=== PATIENT | female | born 1955 | race Caucasian/White ===

== ENCOUNTER → 2017-05-01 | Outpatient (CLI) | payer MEDICARE, MEDICAID ==
[~2017-05-01] MED LIST: ATIVAN0.5 MG PER TUBE; CLARITIN10 MG PER TUBE; DUONEB 2.5-0.5 M3 ML INH; DURAGESIC1 EAC2 TRANSDERM; LYRICA 75 MG CA75 MG PER TUBE; OXYCODONE HCL 55 MG PO; Oxycodone PER TUBE; PEPCID20 MG PER TUBE; PULMICORT0.25 MG/3 INH; ROBITUSSIN100 MG/53 PER TUBE; ZANAFLEX4 MG PO; [UNRECOGNIZED DRUG - OTHER] PER TUBE
--- NOTE | 2017-05-10 23:28 | ONC ---
[address] [address] RADIATION ONCOLOGY NOTE Name: MARIELENA MURILLO Room: [facility]#: [id number] Admission: 05/01/17 Attend Phys: Rosas Pastor MD Discharge: Date of : 55 Report #: [id number] THIS REPORT FOR: //name// CC: Azra Navarrete NO PCP DATE OF PROCEDURE: 05/01/2017 REFERRING PHYSICIANS: 1. Helen Concepcion MD 2. Noa Ritter MD 3. Dr. Rendon. 4. Dr. Navarrete. [facility] phone is [phone]. 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 She completed radiation therapy on 04/12/2015. PROCEDURE: Nasopharyngolaryngoscopy. FINDINGS: On nasopharyngolaryngoscopy, after administration of a small amount of 2% viscous lidocaine orally and 2% viscous lidocaine to the left nostril, using a cotton swab, there were no visible lesions in the nasopharynx or posterior oropharynx. The true vocal cords were normally mobile bilaterally. The patient has a stable area of fibrosis involving the left side of the supraglottic area that was biopsied on 08/30/2015 and had benign findings. There is no evidence of head and neck cancer. Thank you for allowing me to participate in the care of this patient. <ELECTRONICALLY SIGNED> By: Rosas Pastor MD 05/10/17 2328 1149 1214Djuan antonio Pastor MD /nt
--- NOTE | 2017-05-10 23:32 | ONC ---
[place] [address] RADIATION ONCOLOGY NOTE Name: MARIELENA MURILLO Room: [facility]#: [id number] Admission: 05/01/17 Attend Phys: Rosas Pastor MD Discharge: Date of : 55 Report #: [id number] THIS REPORT FOR: //name// CC: Rosas Rendon DATE OF SERVICE: 05/01/2017 REFERRING PHYSICIAN: Azra Ritter MD; Helen Concepcion MD; Dr. Navarrete and Dr. Rendon. [facility] phone is [phone]. 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 She completed radiation treatments on 04/12/2015. INTERVAL NOTE: The patient was seen by speech pathology on 02/25/2017 where she had a swallow study and they recommended she just does pleasure feedings by mouth; otherwise, she takes most of her nutrition through the gastric tube and they indicated, due to the severity of her dysphagia, she cannot sustain nutrition and hydration by mouth and requires life long supplemental nutrition through her gastric tube to maintain adequate hydration and nutrition. She will eat food such as a baked potato by mouth, but otherwise takes about 4 supplements through her gastric tube per day. MEDICATIONS: Loratadine, DuoNeb, famotidine, she takes oxycodone as needed for arthritis, lorazepam and 25 mcg of levothyroxine per day. SOCIAL HISTORY: The patient continues to smoke cigarettes: The patient continues to smoke about a pack of cigarettes per week. REVIEW OF SYSTEMS: RESPIRATORY: Breathing was stable. She was not short of breath. GASTROINTESTINAL: She takes pleasure feedings by mouth such as the baked potato, otherwise she takes about 4 supplements through her gastric tube per day. PHYSICAL EXAMINATION: VITAL SIGNS: The patient weighed 158.8 pounds on 05/01/2017 and 147 pounds on 12/22/2016. On 05/01/2017, her blood pressure was 150/78, pulse 73, respirations 18 and oxygen saturation is 97%. LYMPH NODES: She had no palpable cervical [place] [address] RADIATION ONCOLOGY NOTE Name: MARIELENA MURILLO Room: [facility]#: [id number] Admission: 05/01/17 Attend Phys: Rosas Pastor MD Discharge: Date of : 55 Report #: [id number] HEAD, EYES, EARS, NOSE AND THROAT EXAM: Mouth had no suspicious visible lesions or suspicious palpable lesions. Nasopharyngolaryngoscopy after administration of a small amount of 2% viscous lidocaine orally and 2% viscous lidocaine to the left nostril, there were no visible lesions in the nasopharynx. There were no visible lesions in the posterior pharynx. Epiglottis had a small area of fibrosis that was biopsied on 08/30/2015 which revealed benign findings and appeared stable. Vocal cords were normally mobile bilaterally. The patient was edentulous. HEART: Had a regular rate and rhythm without murmur. LUNGS: were clear to auscultation. ABDOMEN: Soft. Gastric tube was in place. LABORATORY DATA: From 04/22/2017, TSH was 1.78 on her present dose of 25 mcg of levothyroxine per day and her white blood count was 2.4, hemoglobin 13.0 and platelets 61,000. Sodium 138, potassium 4.1, BUN 13 and creatinine 1.0. RADIOLOGIC DATA: The patient had a neck and chest CT on 04/22/2017 which revealed that the findings were overall improved compared to her prior examination and suggested post-treatment related changes which include some prominence of the mucosa in the supraglottis area, but there was no osseous erosion seen. There were no pathologically enlarged cervical lymph nodes. She had stable noncalcified pulmonary nodules in her lungs. ASSESSMENT AND PLAN: 1. History of head and neck cancer- There is no evidence of head and neck cancer at this time. The patient indicates she is seeing her medical oncologist, Dr. Concepcion in 07/2017. She was given a requisition for a TSH, complete blood count and basic metabolic panel in 10/2017. She was asked to schedule a followup appointment to see me afterwards. 2. Hypothyroidism- The patient's TSH was within normal limits on her present dose of 25 mcg of levothyroxine. She was given a refill for 25 mcg of levothyroxine and a requisition for TSH in 10/2017. She was asked to schedule a followup appointment to see me afterwards. 3. Cigarette smoking- The patient was encouraged to quit smoking. 4. Hepatitis C- The patient finished treatment of hepatitis C and sees Dr. Rendon concerning that issue. Thank you for allowing me to participate in the care of this patient. <ELECTRONICALLY SIGNED> By: Rosas Pastor MD 05/10/17 2332 1158 1237Rosas Pastor MD /nt
== END ==
LOC: M.RTH 01:38
DX: E03.9 Hypothyroidism, unspecified (principal); B19.20 Unspecified viral hepatitis C without hepatic coma; Z87.891 Personal history of nicotine dependence

== ENCOUNTER → 2017-10-23 | Outpatient (CLI) | payer OTHER, MEDICAID ==
--- NOTE | 2017-10-31 16:27 | ONC ---
[address] [address] RADIATION ONCOLOGY NOTE Name: MARIELENA MURILLO Room: [facility]#: [id number] Admission: 10/23/17 Attend Phys: Rosas Pastor MD Discharge: Date of : 55 Report #: [id number] THIS REPORT FOR: //name// CC: Rosas Brown DATE OF PROCEDURE: 10/23/2017 REFERRING PHYSICIANS: Include Dr. Concepcion, Dr. Azra Ritter, Dr. Lopes, and Dr. Frank. [facility] phone is [phone]. PRIMARY SITE AND HISTOPATHOLOGY: The patient underwent chemotherapy and radiation therapy for a stage YA supraglottic cancer. She completed radiation therapy on 04/12/2015. PROCEDURE: Nasopharyngolaryngoscopy. FINDINGS: On nasopharyngolaryngoscopy, after administration of a small amount of 2% viscous lidocaine orally and 2% viscous lidocaine to the left nostril using a cotton swab; there were no visible lesions in the nasopharynx or posterior oropharynx. The true vocal cords were normally mobile bilaterally. The patient has a small area of fibrosis on the left side of the supraglottic area that decreased in size, that was biopsied on 10/31/2015, and the pathology was consistent with benign findings. There is no evidence of head and neck cancer. Thank you for allowing me to participate in the care of this patient. <ELECTRONICALLY SIGNED> By: Rosas Pastor MD 10/31/17 1627 1049 1341Djuan antonio Pastor MD /nt
--- NOTE | 2017-10-31 16:41 | ONC ---
[place] [address] RADIATION ONCOLOGY NOTE Name: MARIELENA MURILLO Room: [facility]#: [id number] Admission: 10/23/17 Attend Phys: Rosas Pastor MD Discharge: Date of : 55 Report #: [id number] THIS REPORT FOR: //name// CC: Rosas Brown DATE OF SERVICE: 10/23/2017 REFERRING PHYSICIANS: Helen Concepcion MD; Dr. Lopes; Azra Ritter MD; Dr. Frank; also Dr. Brown. [facility] phone is [phone]. 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 She completed radiation treatments on 04/12/2015. INTERVAL NOTE: The patient is able to eat more foods by mouth. She is eating foods such as a baked potato and cottage cheese and she can tolerate those type of soft, moist foods. She still relies on about taking 3 enteral supplements per day given by the gastric tube to help maintain her weight, so she has been gaining weight. She said she received a 3-months' course of treatment for hepatitis C and that treatment was by Dr. Brown. Overall she feels like she is doing well. She is edentulous. She wears dentures. MEDICATIONS: Loratadine, DuoNeb, famotidine, oxycodone as needed for arthritis, lorazepam as needed, and 25 mcg of levothyroxine per day. SOCIAL HISTORY: The patient continues to smoke cigarettes. She has decreased how much she smokes. She used to smoke a pack of cigarettes a day. She is now down to half a pack of cigarettes per day. REVIEW OF SYSTEMS: RESPIRATORY: Breathing was stable. She was not short of breath. GASTROINTESTINAL: She is able to eat more foods by mouth, and she is taking about 3 cans of supplements per day through her gastric tube. PHYSICAL EXAMINATION: VITAL SIGNS: The patient weighed 169.4 pounds on 10/23/2017. She was 158.8 pounds on 05/01/2017. On 10/23/2017, blood pressure was 156/68, pulse 71, respirations 16, oxygen saturation was 95%. LYMPH NODES: She had no palpable cervical or supraclavicular lymphadenopathy. HEAD, EYES, EARS, NOSE AND THROAT: Mouth [place] [address] RADIATION ONCOLOGY NOTE Name: MARIELENA MURILLO Room: [facility]#: [id number] Admission: 10/23/17 Attend Phys: Rosas Pastor MD Discharge: Date of : 55 Report #: [id number] suspicious palpable lesions. On nasopharyngolaryngoscopy, after administration of a small amount of 2% viscous lidocaine orally and 2% viscous lidocaine to the left nostril, there were no visible lesions in the nasopharynx. There were no visible lesions in the posterior pharynx. The epiglottis had a small area of fibrosis that was smaller than the previous exam, which was biopsied on 08/30/2015, which revealed benign findings. The true vocal cords were normally mobile bilaterally. There were no visible lesions involving he vocal cords. HEART: Had a regular rate and rhythm without murmur. LUNGS: were clear to auscultation. ABDOMEN: Soft with positive bowel sounds. Gastric tube was in place. LABORATORY DATA: The patient's TSH was 3.21, which was within normal limits on 10/13/2017 on her present dose of levothyroxine at 25 mcg per day. Other labs from 10/13/2017 from [facility] had a white blood count of 3.9, hemoglobin 14.4, platelets were 99,000. Sodium 142, potassium 3.8, BUN 9, creatinine 0.8. RADIOLOGIC DATA: The patient had a neck and chest CT on 04/22/2017 and that revealed post-treatment findings that were overall improved compared to her prior examination suggestive of post-treatment related changes. There were no enlarged cervical lymph nodes. There were stable solid noncalcified pulmonary nodules in the lungs. ASSESSMENT AND PLAN: 1. History of head and neck cancer- There is no evidence of head and neck cancer at this time. The patient said that she is scheduled to see her medical oncologist, Dr. Concepcion, in 01/2018. The patient was given a requisition for a complete blood count and basic metabolic panel as well as a neck and chest CT in 04/2018. She was asked to schedule a followup appointment to see me after that lab work is completed. 2. Hypothyroidism - The patient's TSH was within normal limits on her present dose of 25 mcg of levothyroxine. She was given a refill for 25 mcg of levothyroxine. A requisition was written for a TSH in 04/2018. She was asked to schedule a follow up appointment to see me afterwards. 3. Cigarette smoking- The patient was encouraged to quit smoking. 4. Hepatitis C- The patient said she finished her treatment for hepatitis C and follows with Dr[place] [address] RADIATION ONCOLOGY NOTE Name: MARIELENA MURILLO Room: [facility]#: [id number] Admission: 10/23/17 Attend Phys: Rosas Pastor MD Discharge: Date of : 55 Report #: [id number] Thank you for allowing me to participate in the care of this patient. <ELECTRONICALLY SIGNED> By: Rosas Pastor MD 10/31/17 1641 1056 1823Djuan antonio Pastor MD /nt
== END ==
LOC: M.RTH 02:53
DX: Z08 Encounter for follow-up examination after completed treatment for malignant neoplasm (principal); E03.9 Hypothyroidism, unspecified; B19.20 Unspecified viral hepatitis C without hepatic coma; F17.210 Nicotine dependence, cigarettes, uncomplicated; Z85.89 Personal history of malignant neoplasm of other organs and systems

== ENCOUNTER → 2018-06-04 | Outpatient (CLI) | payer OTHER, MEDICAID ==
--- NOTE | ~2018-06-04 | ONC ---
[address] [address] RADIATION ONCOLOGY NOTE Name: MARIELENA MURILLO Room: [facility]#: [id number] Admission: 06/04/18 Attend Phys: Rosas Pastor MD Discharge: Date of : 55 Report #: [id number] THIS REPORT FOR: //name// CC: Rosas Pastor FAM physician/PCP DATE OF SERVICE: 06/04/2018 REFERRING PHYSICIANS: Helen Concepcion MD. Dr. Ritter. Dr. Luli Baum. [facility] phone is [phone]. PRIMARY SITE AND HISTOPATHOLOGY: The patient underwent chemotherapy and radiation therapy for stage 4A supraglottic cancer. She completed radiation therapy on 04/12/2015. PROCEDURE: Nasopharyngolaryngoscopy. FINDINGS: On nasopharyngolaryngoscopy, after administration of a small amount of 2% viscous lidocaine orally and 2% viscous lidocaine to left nostril using cotton swab, there were no visible lesions in the nasopharynx or posterior oropharynx. The true vocal cords are normally mobile bilaterally. The patient has a small area of fibrosis in the left side of the supraglottic area that decreased in size. It was biopsied on 10/31/2015. The pathology was consistent with benign findings. There is no evidence of head and neck cancer. Thank you for allowing me to participate in the care of this patient. By: [id number] momo Apple
--- NOTE | ~2018-06-04 | ONC ---
[address] [address] RADIATION ONCOLOGY NOTE Name: MARIELENA MURILLO Room: [facility]#: [id number] Admission: 06/04/18 Attend Phys: Rosas Pastor MD Discharge: Date of : 55 Report #: [id number] THIS REPORT FOR: //name// CC: Rosas Pastor [facility] physician/PCP DATE OF SERVICE: 06/04/2018 REFERRING PHYSICIANS: Dr. Luli Baum, Dr. Concepcion and Dr. Azra Ritter. [facility] phone is [phone]. 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 She completed radiation treatments on 04/12/2015. INTERVAL NOTE: She is able to eat soft foods by mouth such as spaghetti, baked potato and cottage cheese. Otherwise, she takes her fluids and medications through her gastric tube. She is edentulous. She wears dentures. MEDICATIONS: Include cyclobenzaprine, clotrimazole, 5 mg oxycodone every 6 hours as needed for pain, loratadine, Lyrica, trazodone, sumatriptan spray, lorazepam 0.5 mg at night as needed, famotidine. She was increased from 25 mcg levothyroxine per day to 50 mcg of levothyroxine per day and she is on Chantix and Ellipta. SOCIAL HISTORY: The patient continues to smoke cigarettes. She has decreased somewhat. She smokes. She is a little under a pack a day. REVIEW OF SYSTEMS: RESPIRATORY: Breathing was stable. She was not short of breath. GASTROINTESTINAL: She is eating soft foods by mouth, but still uses her gastric tube for liquids and for her medications. PHYSICAL EXAMINATION: VITAL SIGNS: The patient weighed 178.2 pounds on 06/04/2018; 169.4 pounds on 10/23/2017 and on 06/04/2018, blood pressure 165/83, pulse 89, respirations 20, oxygen saturation 95%. LYMPH NODES: She had no palpable cervical or supraclavicular lymphadenopathy. HEAD, EYES, EARS, NOSE AND THROAT: Mouth had no suspicious visible lesions or suspicious palpable lesions. On nasopharyngolaryngoscopy, after administration of a small amount of 2% viscous lidocaine orally and 2% viscous lidocaine to the left nostril, there were no visible lesions in the nasopharynx and no visible lesions in the posterior oropharynx. Epiglottis, there is a small area of fibrosis that was smaller than previous exam that was biopsied on 08/30/2015 [place] [address] RADIATION ONCOLOGY NOTE Name: MARIELENA MURILLO [id number] Admission: 06/04/18 Attend Phys: Rosas Pastor MD Discharge: Date of : 55 Report #: [id number] findings. The true vocal cords were normally mobile bilaterally. There were no visible lesions involving the vocal cords. HEART: Had a regular rate and rhythm without murmur. LUNGS: Clear to auscultation. ABDOMEN: Soft with positive bowel sounds. Gastric tube was intact. LABORATORY DATA: From 04/20/2018: White blood cell count was 4.7, hemoglobin 14.8, platelets were 105,000 and sodium was 140, potassium was 3.8, BUN 7, creatinine 0.0, SGOT 21, SGPT 29. TSH was slightly elevated at 5.49 and her levothyroxine was increased from 25 mcg per day to 50 mcg per day. RADIOLOGIC DATA: From 04/01/2018, the patient had a neck and chest CT and that revealed no significant change in the supraglottic soft tissue thickening. There is no new mass or lymphadenopathy. She has chronic emphysematous involvement. There were no new pulmonary nodules. ASSESSMENT AND PLAN: 1. History of head and neck cancer. There is no evidence of head and neck cancer at this time. The patient will be referred for video swallow study and a lab work over the next 1-3 months and follow up with me afterwards. She has an appointment with Dr. Concepcion on 10/25/2018 and with her ear, nose and throat physician on 10/12/2018 and with her primary care physician on 07/14/2018. 2. Hypothyroidism. The patient's TSH was slightly elevated on 25 mcg per day, so she is now taking 50 mcg of levothyroxine per day and TSH will be ordered in about 1-3 months and follow up with me afterwards. 3. Cigarette smoking. The patient was encouraged to quit smoking. 4. The patient has a nodule on the thyroid that measures 1.5 cm. Thus, she will be referred to her ear, nose and throat physician, Dr. Ritter, to address that issue. Thank you for allowing me to participate in the care of this patient. By: [id number] [id number] Pastor MD /rico
== END ==
LOC: M.RTH 02-24 11:15
DX: Z08 Encounter for follow-up examination after completed treatment for malignant neoplasm (principal); F17.210 Nicotine dependence, cigarettes, uncomplicated; Z85.89 Personal history of malignant neoplasm of other organs and systems; Z92.21 Personal history of antineoplastic chemotherapy; Z92.3 Personal history of irradiation; Z79.899 Other long term (current) drug therapy

== ENCOUNTER → 2018-09-03 | Outpatient (CLI) | payer OTHER, MEDICAID ==
--- NOTE | 2018-09-05 21:43 | ONC ---
[place] [address] RADIATION ONCOLOGY NOTE Name: MARIELENA MURILLO Room: [facility].#: [id number] Admission: 09/03/18 Attend Phys: Rosas Pastor MD Discharge: Date of : 55 Report #: [id number] THIS REPORT FOR: //name// CC: Rosas Baum MD DATE OF PROCEDURE: 09/03/2018 REFERRING PHYSICIANS: Helen Concepcion MD; Azra Ritter MD; Luli Baum MD; [facility], phone is [phone]. PRIMARY SITE AND HISTOPATHOLOGY: The patient underwent chemotherapy and radiation therapy for a stage YA supraglottic cancer. She completed radiation therapy on 04/12/2015. PROCEDURE: Nasopharyngolaryngoscopy. FINDINGS: On nasopharyngolaryngoscopy, after administration of a small amount of 2% viscous lidocaine orally and 2% viscous lidocaine to the left nostril, using a cotton swab, there were no visible lesions in the nasopharynx or posterior oropharynx. True vocal cords were normally mobile bilaterally. The patient has mild supraglottic edema. There is an area of fibrosis that was biopsied on 10/31/2015 and that was consistent with benign findings. There is no clear evidence of any head and neck cancer. Thank you for allowing me to participate in the care of this patient. <ELECTRONICALLY SIGNED> By: Rosas Pastor MD 09/05/18 2143 1502 [id number] Pastor MD /nt
--- NOTE | 2018-09-05 22:21 | ONC ---
[address] [address] RADIATION ONCOLOGY NOTE Name: MARIELENA MURILLO Room: [facility]#: [id number] Admission: 09/03/18 Attend Phys: Rosas Pastor MD Discharge: Date of : 55 Report #: [id number] THIS REPORT FOR: //name// CC: Rosas Baum MD DATE OF SERVICE: 09/03/2018 RADIATION ONCOLOGY FOLLOWUP NOTE [facility] phone is [phone]. 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 She completed radiation treatments on 04/12/2015. INTERVAL NOTE: She says she takes all her nutrition by mouth and that her weight is relatively stable. She eats soft foods such as spaghetti, baked potato, and cottage cheese. She is edentulous and wears dentures. She wants her gastric tube removed. MEDICATIONS: Include cyclobenzaprine, clotrimazole, oxycodone 5 mg every 6 hours as needed for pain, loratadine, Lyrica, trazodone, sumatriptan spray, lorazepam 0.5 mg at night as needed, famotidine, levothyroxine 50 mcg per day, and Ellipta. SOCIAL HISTORY: The patient continues to smoke cigarettes. She smokes about a pack of cigarettes per day. REVIEW OF SYSTEMS: RESPIRATORY: Breathing was stable. She was not short of breath. GASTROINTESTINAL: She is eating soft foods by mouth and only takes her medication by the gastric tube and wants the gastric tube removed. PHYSICAL EXAMINATION: VITAL SIGNS: The patient weight was 173.8 pounds on 09/03/2018 and 178.4 pounds on 06/04/2018. on 09/03/2018; blood pressure was 132/68, pulse 97, respirations 20, and oxygen saturation 94%. LYMPH NODES: She had no palpable cervical or supraclavicular lymphadenopathy. HEAD, EYES, EARS, NOSE, AND THROAT: Mouth had no suspicious visible lesions. On nasopharyngolaryngoscopy after administration of a small amount of 2% viscous lidocaine orally and 2% viscous lidocaine to the left nostril, there were no visible lesions in the nasopharynx, and no [place] [address] RADIATION ONCOLOGY NOTE Name: MARIELENA MURILLO Room: [facility]#: [id number] Admission: 09/03/18 Attend Phys: Rosas Pastor MD Discharge: Date of : 55 Report #: [id number] oropharynx. The patient has a very small amount of fibrosis in the epiglottis that was biopsied on 08/30/2015 and revealed benign findings. The true vocal cords were normally mobile bilaterally. She had some supraglottic edema, which could be attributable to cigarette smoking. HEART: Had a regular rate and rhythm without murmur. LUNGS: were clear to auscultation. ABDOMEN: Soft with positive bowel sounds. Gastric tube was intact. LABORATORY DATA: From 08/26/2018; white blood count 5.6, hemoglobin 12.9, and platelets were 94,000. Sodium 141, potassium 3.8, BUN 13, creatinine 1.0. TSH was 1.48. RADIOLOGIC DATA: The patient had some white discoloration in the supraglottic area consistent with oropharyngeal candidiasis. ASSESSMENT AND PLAN: 1. History of head and neck cancer- There is no evidence of head and neck cancer at this time. Lab work was ordered around 10/2018. She was asked to schedule a follow up appointment with me after that lab work is complete. 2. Hypothyroidism- The patient's TSH was within normal limits with her taking 50 mcg of levothyroxine per day. She was prescribed 50 mcg of levothyroxine per day and she was asked to follow up with me around 10/2018. 3. Oropharyngeal candidiasis. The patient was given a 3-day course of fluconazole to treat that issue. 4. Cigarette smoking- The patient was encouraged to quit smoking. 5. Thyroid nodule, measuring 1.5 cm-that is followed by her Ear, Nose, and Throat physician, Dr. Ritter. 6. Nutrition- The patient wants her gastric tube removed. She says she does not use the gastric tube for nutrition and so, she will be referred to Interventional Radiology to have it removed and lab work will be ordered in about a month and she will be asked to schedule a follow up appointment with me afterwards. Thank you for allowing me to participate in the care of this patient. <ELECTRONICALLY SIGNED> By: Rosas Pastor MD 09/05/18 2221 1508 0019Rosas Pastor MD /nt
== END | disposition home or self-care (01) ==
LOC: M.RTH 08-06 10:15
DX: Z08 Encounter for follow-up examination after completed treatment for malignant neoplasm (principal); Z85.21 Personal history of malignant neoplasm of larynx; E03.9 Hypothyroidism, unspecified; F17.210 Nicotine dependence, cigarettes, uncomplicated; Z79.891 Long term (current) use of opiate analgesic; Z79.899 Other long term (current) drug therapy; Z98.890 Other specified postprocedural states; Z88.6 Allergy status to analgesic agent

== ENCOUNTER → 2018-10-22 | Outpatient (CLI) | payer OTHER, MEDICAID ==
--- NOTE | ~2018-10-22 | ONC ---
[address] [address] RADIATION ONCOLOGY NOTE Name: MARIELENA [facility]URILLO [id number] Admission: 10/22/18 Attend Phys: Rosas Pastor MD Discharge: Date of : 55 Report #: [id number] THIS REPORT FOR: //name// CC: LULI Brumfield Physician staff DATE OF SERVICE: 10/22/2018 RADIATION/ONCOLOGY FOLLOWUP NOTE [facility] phone is [phone]. REFERRING PHYSICIANS: Vivi Matos DO, Helen Concepcion MD, Azra Ritter MD and Luli Baum MD. 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 She completed radiation treatments on 04/12/2015. INTERVAL NOTE: The patient is taking all of her nutrition by mouth, but the area where the gastric tube was removed did not heal completely, so she tends to eat soft foods and liquids can sometimes leak. She likes to eat spaghetti, baked potato and cottage cheese. She is edentulous, wears dentures and she is going to be seeing her surgeon, Dr. Matos, on Thursday to look at helping with opposing that area, so that it can heal up. MEDICATIONS: Include cyclobenzaprine, clotrimazole, 5 mg oxycodone every 6 hours as needed for pain, loratadine, Lyrica, trazodone, sumatriptan spray, lorazepam at night as needed, famotidine, 50 mcg of levothyroxine and Ellipta. SOCIAL HISTORY: The patient continues to smoke cigarettes. She smokes about a pack of cigarettes per day. REVIEW OF SYSTEMS: RESPIRATORY: Breathing was stable. She was not short of breath. GASTROINTESTINAL: She is eating soft foods by mouth. She is going to be seeing a surgeon in terms of helping to close up the area where her gastric tube used to be in place. PHYSICAL EXAMINATION: VITAL SIGNS: The patient weighed 171.6 pounds on 10/22/2018, 173.8 pounds on 09/03/2018. On 10/22/2018, blood pressure 135/88, pulse 93, [place] [address] RADIATION ONCOLOGY NOTE Name: MARIELENA MURILLO Room: [facility]#: [id number] Admission: 10/22/18 Attend Phys: Rosas Pastor MD Discharge: Date of : 55 Report #: [id number] 94%, respirations 18. LYMPH NODES: The patient had no palpable cervical or supraclavicular lymphadenopathy. HEAD, EYES, EARS, NOSE AND THROAT: Mouth had no suspicious visible lesions. On nasopharyngolaryngoscopy, after administration of a small amount of 2% viscous lidocaine orally and 2% viscous lidocaine to left nostril, there were no visible lesions in the nasopharynx, no visible lesions in the posterior oropharynx. The patient has a small amount of fibrosis in the epiglottis that was biopsied on 08/30/2015, revealed benign findings, that area is stable. True Vocal cords are normally mobile bilaterally. HEART: Had a regular rate and rhythm without murmur. LUNGS: Clear to auscultation. LABORATORY DATA: 10/18/2018, white blood cell count 3.9, hemoglobin 13.8, platelets 107,000. Sodium 141, potassium 4.0, BUN 12, creatinine 0.9 and she had a TSH of 1.48 on 08/26/2018. ASSESSMENT AND PLAN: 1. History of head and neck cancer. There is no evidence of head and neck cancer at this time. She indicated she is seeing her medical oncologist later this month. A complete blood count, basic metabolic panel was ordered in 02/2019. The patient was asked to schedule a followup appointment to see me afterwards. 2. Hypothyroidism. The patient's TSH was within normal limits with her taking 50 mcg of levothyroxine per day. She was given a refill for 50 mcg of levothyroxine per day and a TSH was ordered around 02/2019. She was asked to schedule a followup appointment to see me afterwards. 3. Cigarette smoking. The patient was encouraged to quit smoking cigarettes. 4. Nonhealing gastric tube wound. The patient is seeing her surgeon, Dr. Matos, on Thursday to help close up that area. Thank you very much for allowing me to participate in the care of this patient. By: 1348 [id number] Pastor MD /rico
--- NOTE | ~2018-10-22 | ONC ---
[address] [address] RADIATION ONCOLOGY NOTE Name: MARIELENA MURILLO Room: [facility]#: [id number] Admission: 10/22/18 Attend Phys: Rosas Pastor MD Discharge: Date of : 55 Report #: [id number] THIS REPORT FOR: //name// CC: APRIL Pastor Physician staff PROCEDURE NOTE REFERRING PHYSICIANS: Dr. Matos; Helen Concepcion MD; Azra Ritter MD and Dr. Baum. [facility] phone is [phone]. PRIMARY SITE AND HISTOPATHOLOGY: The patient underwent chemotherapy and radiation therapy for a stage 4A supraglottic cancer. She completed radiation therapy on 04/12/2015. PROCEDURE: Nasopharyngolaryngoscopy. FINDINGS: On nasopharyngolaryngoscopy, after administration of a small amount of 2% viscous lidocaine orally and 2% viscous lidocaine to the left nostril using cotton swab, there were no visible lesions in the nasopharynx or posterior oropharynx. True vocal cords were normally mobile bilaterally. There was an area of fibrosis that was biopsied on 10/31/2015 that was consistent with benign findings, other area is unchanged. There is no evidence of any head and neck cancer. Thank you for allowing me to participate in the care of this patient. By: 1343 0031DMD momo Roman
== END ==
LOC: M.RTH 04:55
DX: Z09 Encounter for follow-up examination after completed treatment for conditions other than malignant neoplasm (principal); E03.9 Hypothyroidism, unspecified; F17.210 Nicotine dependence, cigarettes, uncomplicated; Z85.21 Personal history of malignant neoplasm of larynx; Z92.3 Personal history of irradiation; Z79.899 Other long term (current) drug therapy

== ENCOUNTER → 2019-02-18 | Outpatient (CLI) | payer OTHER, MEDICAID ==
--- NOTE | 2019-02-19 22:15 | ONC ---
[address] [address] RADIATION ONCOLOGY NOTE Name: MARIELENA MURILLO Room: [facility].#: [id number] Admission: 02/18/19 Attend Phys: Rosas Pastor MD Discharge: Date of : 55 Report #: [id number] THIS REPORT FOR: //name// CC: Dr. Luli Ritter DATE OF SERVICE: 02/18/2019 REFERRING PHYSICIANS: Include Luli Baum MD; Helen Concepcion MD; Vivi Matos DO; and Azra Ritter MD. [facility] phone is [phone]. PRIMARY SITE AND HISTOPATHOLOGY: The patient underwent chemotherapy and radiation therapy for a stage YA supraglottic cancer. She completed radiation therapy on 04/12/2015. PROCEDURE: Nasopharyngolaryngoscopy. FINDINGS: On nasopharyngolaryngoscopy, after administration of a small amount of 2% viscous lidocaine orally and 2% viscous lidocaine to the left nostril, using a cotton swab, there were no visible lesions in the nasopharynx or posterior oropharynx. The true vocal cords were normally mobile bilaterally. There was an area of fibrosis on the left side that has been stable and that area was biopsied on 10/31/2015 and that was consistent with benign findings. There is no evidence of head and neck cancer. Thank you for allowing me to participate in the care of this patient. <ELECTRONICALLY SIGNED> By: Rosas Pastor MD 02/19/19 2215 1028 [id number] antonio Pastor MD /nt
--- NOTE | 2019-02-19 22:24 | ONC ---
[place] [address] RADIATION ONCOLOGY NOTE Name: MARIELENA MURILLO Room: [facility].#: [id number] Admission: 02/18/19 Attend Phys: Rosas Pastor MD Discharge: Date of : 55 Report #: [id number] THIS REPORT FOR: //name// CC: Dr. Luli Matos DATE OF SERVICE: 02/18/2019 REFERRING PHYSICIANS: Luli Baum MD; Noa Ritter MD; Helen Concepcion MD; Vivi Matos DO [facility] phone is [phone]. 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 She completed radiation treatments on 04/12/2015. INTERVAL NOTE: She is taking all of her nutrition by mouth. The area where the gastric tube was removed did not heal completely, so she is scheduled for suturing of that area on Thursday02/21/2019. She is eating a regular diet. She eats food such as spaghetti, baked potatoes and cottage cheese. She is edentulous and wears dentures. She continues to follow up with her medical oncologist, Dr. Concepcion, about every 4 months. She also continues to follow up with her ear, nose and throat physician, Dr. Noa Ritter. Her next appointment with Dr. Ritter was on 04/26/2019. MEDICATIONS: Include cyclobenzaprine, clotrimazole, Lyrica, trazodone, 50 mcg of levothyroxine per day, and zolpidem as needed. SOCIAL HISTORY: The patient is cutting down her smoking. She is now smoking about a half pack of cigarettes per day. She has about a [id number] smoking history. REVIEW OF SYSTEMS: RESPIRATORY: Breathing was stable. She was not short of breath. GASTROINTESTINAL: She is eating soft foods by mouth. PHYSICAL EXAMINATION: VITAL SIGNS: The patient weighed 174.4 pounds on 02/18/2019, 171.6 pounds on 10/22/2018. On 02/18/2019 her blood pressure was 136/74, pulse 98, oxygen saturation was 92%, respirations 20. LYMPH NODES: The patient had no palpable [place] [address] RADIATION ONCOLOGY NOTE Name: MARIELENA MURILLO Room: [facility]#: [id number] Admission: 02/18/19 Attend Phys: Rosas Pastor MD Discharge: Date of : 55 Report #: [id number] lymphadenopathy. HEAD, EYES, EARS, NOSE AND THROAT: Mouth had no suspicious visible lesions or suspicious palpable lesions. On nasopharyngolaryngoscopy, after administration of a small amount of 2% viscous lidocaine orally and 2% viscous lidocaine to the left nostril, there were no visible lesions in the nasopharynx or visible lesions in the posterior oropharynx. The patient had a small amount of fibrosis in the epiglottis that had been biopsied on 08/30/2015 and revealed benign findings and; that were stable. True vocal cords were normally mobile bilaterally. HEART: Had a regular rate and rhythm without murmur. LUNGS: were clear to auscultation. ABDOMEN: She had a nonhealing area where her gastric tube used to be. LABORATORY DATA: From 02/15/2019, the patient's TSH was within normal limits at 1.9 with her taking 50 mcg of levothyroxine per day. Her white blood count was 4.1, hemoglobin 14.5, platelets 146,000. Sodium was 139, potassium 4.0 and calcium was 8.0. ASSESSMENT AND PLAN: 1. History of head and neck cancer- There is no evidence of head and neck cancer at this time. She said she is due to see her ear, nose and throat physician, Dr. Ritter, on 04/25/2018, and Dr. Concepcion on 04/25/2019. I asked the patient to follow up with me in about 6 months. 2. Hypothyroidism- The patient's TSH was within normal limits with her taking 50 mcg of levothyroxine per day. She was given a refill for 50 mcg of levothyroxine per day and a TSH was ordered in 06/2019 or 07/2019 and the patient was asked to schedule a followup appointment to see me afterwards. 3. Low calcium level - the albumin was not checked at this time, so the calcium level could have been an artifact due to low albumin, though she will be referred to her primary care physician to evaluate this issue. A basic metabolic panel and TSH will be ordered in 06/2019 or 07/2019 and the patient will be asked to follow up with me afterwards. 4. Cigarette smoking- The patient was encouraged to quit smoking cigarettes. 5. Nonhealing gastric tube wound- The patient is having that area sutured on 02/21/2019. Thank you for allowing me to participate in the care of this patient. <ELECTRONICALLY SIGNED> By: Rosas Pastor MD 02/19/19 2224 1426 0013DMD momo Roman
== END ==
LOC: M.RTH 09:00
DX: Z08 Encounter for follow-up examination after completed treatment for malignant neoplasm (principal); E03.9 Hypothyroidism, unspecified; Z87.891 Personal history of nicotine dependence

== ENCOUNTER → 2019-08-19 | Outpatient (CLI) | payer OTHER, MEDICAID ==
--- NOTE | 2019-08-28 12:12 | ONC ---
[address] [address] RADIATION ONCOLOGY NOTE Name: MARIELENA MURILLO Room: [facility]#: [id number] Admission: 08/19/19 Attend Phys: Rosas Pastor MD Discharge: Date of : 55 Report #: [id number] THIS REPORT FOR: //name// Please appreciate my other dictations from August 19, 2019. <ELECTRONICALLY SIGNED> By: Rosas Pastor MD 08/28/19 1212 1207 1225Rosas Pastor MD /nt
--- NOTE | 2019-08-28 13:43 | ONC ---
[address] [address] RADIATION ONCOLOGY NOTE Name: MARIELENA MURILLO Room: [facility].#: [id number] Admission: 08/19/19 Attend Phys: Rosas Pastor MD Discharge: Date of : 55 Report #: [id number] THIS REPORT FOR: //name// CC: Luli Brumfield MD [facility] DATE OF PROCEDURE: 08/19/2019 PRIMARY SITE AND HISTOPATHOLOGY: The patient underwent chemotherapy and radiation therapy for a stage YA supraglottic cancer. She completed radiation therapy on 04/12/2015. PROCEDURE: Nasopharyngolaryngoscopy. FINDINGS: On nasopharyngolaryngoscopy, after administration of a small amount of 2% viscous lidocaine orally and 2% viscous lidocaine to the left nostril, using a cotton swab, there were no visible lesions in the nasopharynx or posterior oropharynx. There was an area of fibrosis on the left side on the epiglottis that has been stable and that area was biopsied on 10/31/2015, and was consistent with benign findings. The True Vocal Cords were normally mobile bilaterallyy with no suspicious visible lesions. There was no evidence of head and neck cancer. Thank you for allowing me to participate in the care of this patient. <ELECTRONICALLY SIGNED> By: Rosas Pastor MD 08/28/19 1343 1159 1224Djuan antonio Pastor MD /rico
--- NOTE | 2019-08-28 14:10 | ONC ---
[place] [address] RADIATION ONCOLOGY NOTE Name: MARIELENA MURILLO Room: [facility]#: [id number] Admission: 08/19/19 Attend Phys: Rosas Pastor MD Discharge: Date of : 55 Report #: [id number] THIS REPORT FOR: //name// CC: Luli Pastor MD DATE OF SERVICE: 08/19/2019 REFERRING PHYSICIANS: Luli Baum MD; Helen Concepcion MD; Azra Ritter MD; Vivi Matos DO PHONE NUMBER: [facility] phone is [phone]. PRIMARY SITE AND HISTOPATHOLOGY: The patient received chemotherapy/radiation therapy for a stage YA supraglottic cancer. She completed radiation treatments on 04/12/2015. INTERVAL NOTE: The patient is eating a regular diet by mouth. She likes to eat foods such as spaghetti, baked potatoes and cottage cheese. She had issues with a nonhealing area in the area of her gastric tube back in 02/2019 and she indicated that area has healed up. She wears dentures. She is edentulous. She continues to follow up with her medical oncologist, Dr. Concepcion. She has an appointment with Dr. Concepcion around 11/2019 and she said she has an appointment with her ear, nose, throat physician, Dr. Ritter, around 12/2019. MEDICATIONS: Include cyclobenzaprine, oxycodone as needed, loratadine, pregabalin, sumatriptan 50 mcg of levothyroxine per day, Incuse Ellipta, Zolpidem and ProAir. SOCIAL HISTORY: The patient is smoking about a half pack of cigarettes per day. She smoked a half pack to 1 pack of cigarettes per day since about 1979. REVIEW OF SYSTEMS: RESPIRATORY: Breathing was stable. She was not short of breath. GASTROINTESTINAL: She is eating soft foods by mouth. PHYSICAL EXAMINATION: VITAL SIGNS: The patient weighed 175.2 pounds on 08/19/2019, 174.4 pounds on 02/18/2019 . On 08/19/2019, her blood pressure was 131/69, pulse 89, oxygen saturation 93%, temperature 97.9 degrees Fahrenheit, respirations 18. LYMPH NODES: The patient had no palpable cervical or supraclavicular lymphadenopathy. HEAD, EYES, EARS, NOSE AND THROAT: Mouth [place] [address] RADIATION ONCOLOGY NOTE Name: MARIELENA MURILLO Room: [facility]#: [id number] Admission: 08/19/19 Attend Phys: Rosas Pastor MD Discharge: Date of : 55 Report #: [id number] suspicious palpable lesions. On nasopharyngolaryngoscopy, after administration of a small amount of 2% viscous lidocaine orally and 2% viscous lidocaine to the left nostril, there were no visible lesions in the nasopharynx or visible lesions in the posterior oropharynx. The patient has a small amount of fibrosis in the epiglottis that had been biopsied on 08/30/2015, and revealed benign findings. True vocal cords were normally mobile bilaterally with no suspicious palpable masses. HEART: Had a regular rate and rhythm without murmur. LUNGS: were clear to auscultation. ABDOMEN: The area where her gastric tube is well healed now. LABORATORY DATA: From 06/03/[address] Concepcion's office at [facility]; sodium 141, potassium 3.9, BUN 9, creatinine 0.9, albumin 3.4, calcium 8.5 and TSH was 3.6 with her taking 50 mcg of levothyroxine per day. RADIOLOGIC DATA: The patient had a screening chest CT at [facility] on 08/09/2019 which showed bilateral solid pulmonary nodules, which were stable since 04/22/2017. She also had basilar pulmonary cysts which could correlate with autoimmune disorders and emphysema. ASSESSMENT AND PLAN: 1. History of head and neck cancer- There is no evidence of head and neck cancer at this time. The patient continues to follow up with her medical oncologist as well as her ear, nose, throat physician. She will be seeing them around 11/2019 and/or 12/2019. The patient was asked to schedule a followup appointment to see me in about 8 months. 2. Hypothyroidism- Her TSH was within normal limits with her taking 50 mcg of levothyroxine per day. The patient was given a refill for 50 mcg of levothyroxine per day and she was given a requisition for a TSH in about 3-6 months and the patient was asked to schedule a follow up appointment with me afterwards. 3. Cigarette smoking- The patient was encouraged to quit smoking cigarettes. 4. 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 The patient indicated she was referred to a geothermal operating engineer and she has an appointment with him in the future to evaluate these findings. Thank you very much for allowing me to participate in the care of this patient. <ELECTRONICALLY SIGNED> By: Rosas Pastor MD 08/28/19 1410 1214 123MD momo Weller
== END ==
LOC: M.RTH 05:34
PROVIDERS: ATTEND Radiology Radiation Oncology
DX: Z08 Encounter for follow-up examination after completed treatment for malignant neoplasm (principal); Z85.21 Personal history of malignant neoplasm of larynx; F17.210 Nicotine dependence, cigarettes, uncomplicated; Z79.899 Other long term (current) drug therapy

== ENCOUNTER → 2020-04-20 | Outpatient (CLI) | payer OTHER, MEDICAID ==
--- NOTE | ~2020-04-20 | ONC ---
[address] [address] RADIATION ONCOLOGY NOTE Name: MARIELENA MURILLO Room: [facility]#: [id number] Admission: 04/20/20 Attend Phys: Rosas Pastor MD Discharge: Date of : 55 Report #: [id number] THIS REPORT FOR: cc: Luli Baum MD, Aniesa MD ~ Rosas Pastor MD DATE OF SERVICE: 04/20/2020 RADIATION-ONCOLOGY PROCEDURE NOTE REFERRING PHYSICIANS: Luli Baum MD; Azra Ritter MD; Helen Concepcion MD; jonah and Vivi Matos DO [facility] phone is [phone]. PRIMARY SITE AND HISTOPATHOLOGY: The patient underwent chemotherapy and radiation therapy for stage 4A supraglottic cancer. She completed radiation therapy on 04/12/2015. PROCEDURE: Nasopharyngolaryngoscopy. FINDINGS: On nasopharyngolaryngoscopy, after administration of a small amount of 2% viscous lidocaine orally and 2% viscous lidocaine to left nostril, using cotton swab, there were no visible lesions in the nasopharynx or posterior oropharynx. There is an area of fibrosis in the left side of the epiglottis that has been stable. That area was biopsied on 10/31/2015, was consistent with benign findings. True vocal cords are normally mobile bilaterally with no suspicious visible lesions. There was no evidence of head and neck cancer. Thank you for allowing me to participate in the care of this patient. By: 1049 1123Djuan antonio Pastor MD /rico
--- NOTE | ~2020-04-20 | ONC ---
[place] [address] RADIATION ONCOLOGY NOTE Name: MARIELENA MURILLO Room: [facility]#: [id number] Admission: 04/20/20 Attend Phys: Rosas Pastor MD Discharge: Date of : 55 Report #: [id number] THIS REPORT FOR: cc: Luli Baum MD, Aniesa MD ~ Rosas Pastor MD DATE OF SERVICE: 04/20/2020 RADIATION ONCOLOGY FOLLOWUP NOTE REFERRING PHYSICIANS: Luli Baum MD; Helen Concepcion MD; Azra Ritter MD; Vivi Matos DO [facility] phone is [phone]. PRIMARY SITE AND HISTOPATHOLOGY: The patient received chemotherapy and radiation therapy for stage 4A supraglottic cancer. She completed radiation treatments on 04/12/2015. INTERVAL NOTE: She eats a regular diet by mouth. She likes to eat foods such as spaghetti, baked potato and cottage cheese. She wears dentures. She is edentulous. She continues to follow up with her medical oncologist, Dr. Concepcion. MEDICATIONS: Include cyclobenzaprine, oxycodone as needed, loratadine, pregabalin, sumatriptan, 50 mcg of levothyroxine per day, Ellipta, zolpidem. SOCIAL HISTORY: The patient is smoking about a half pack of cigarettes per day. She smoked about a half pack to one pack of cigarettes per day since about 1979. REVIEW OF SYSTEMS: RESPIRATORY: Breathing was stable. She was not short of breath. GASTROINTESTINAL: She is eating soft foods by mouth. PHYSICAL EXAMINATION: VITAL SIGNS: The patient weighed 184 pounds on 04/20/2020. She was 175.2 pounds on 08/19/2019 and on 04/20/2020, blood pressure is 176/80, pulse 87, oxygen saturation 96%, respirations 20, temperature 98.6 degrees Fahrenheit. LYMPH NODES: She had no palpable cervical or supraclavicular lymphadenopathy. HEAD, EYES, EARS, NOSE AND THROAT: Mouth had no suspicious visible lesions or suspicious palpable lesions. On nasopharyngolaryngoscopy, after administration of a small amount of 2% viscous lidocaine orally, 2% viscous lidocaine to the left nostril, there were no visible lesions in the nasopharynx or in the posterior oropharynx. The patient has a small amount of fibrosis in the epiglottis, which had been biopsied on 08/30/2015 revealed benign findings. True vocal cords were normally mobile [place] [address] RADIATION ONCOLOGY NOTE Name: MARIELENA MURILLO Room: [facility]#: [id number] Admission: 04/20/20 Attend Phys: Rosas Pastor MD Discharge: Date of : 55 Report #: [id number] HEART: Had a regular rate and rhythm without murmur. LUNGS: Clear to auscultation. LABORATORY DATA: From 02/15/2019, white blood cells 4.1, hemoglobin 14.5, and platelets 146,000. Sodium 139, potassium 4.0, BUN 10, creatinine 0.9 and TSH was 1.9. RADIOLOGIC DATA: From 08/09/2019, she had stable lung nodules since 2018 and emphysematous changes, benign appearance. ASSESSMENT AND PLAN: 1. History of head and neck cancer. There is no evidence of head and neck cancer at this time. The patient continues to follow up with her medical oncologist as well as her Ear, Nose and Throat physician and a TSH was ordered in about 1 year and she was asked to follow up with me afterwards. 2. Thyroid nodules. The patient had biopsies of her thyroid nodules by her Ear, Nose and Throat physician and those were negative for cancer. 3. Hypothyroidism. The patient was given a refill for her 50 mcg of levothyroxine and since her TSH was within normal limits with her taking that, a TSH was ordered in about 1 year and she was asked to follow up with me afterwards. 4. Cigarette smoking. The patient was encouraged to quit smoking and the patient had a screening chest CT ordered for 07/2020. Follow up with me in about 1 year. 5. Elevated blood pressure. She was referred to her primary care physician to manage her blood pressure. Total time spent on this appointment was approximately 31 minutes. Thank you for allowing me to participate in the care of this patient. By: 1217 1342Djuan antonio Pastor MD /nt
== END ==
LOC: M.RTH 09:00
PROVIDERS: ATTEND Radiology Radiation Oncology
DX: Z85.21 Personal history of malignant neoplasm of larynx (principal); Z92.21 Personal history of antineoplastic chemotherapy; I10 Essential (primary) hypertension; F17.200 Nicotine dependence, unspecified, uncomplicated; E03.9 Hypothyroidism, unspecified; E04.2 Nontoxic multinodular goiter; Z85.818 Personal history of malignant neoplasm of other sites of lip, oral cavity, and pharynx